=== PATIENT | male | born 1995 | race Caucasian/White ===

== ENCOUNTER 2018-01-15 03:34 | Emergency (ER) | payer SELFPAY ==
[~2018-01-15 03:34] MED LIST: ANTI2TAB PO; BENT20TA PO
[2018-01-15 03:36] VITALS: BP 178/118; PULSE 113; RESP 18; TEMP 98.5; O2SAT 99
[2018-01-15] MEDS ORDERED: SILVER NITR/POTASSIUM NITRATE APPLICATORS TOPICAL ONE (04:00)
[2018-01-15 04:31] VITALS: BP 155/95; PULSE 88; RESP 16; O2SAT 99
[2018-01-15] MEDS ORDERED: AMLO5 PO (04:31)
--- NOTE | 2018-01-15 04:31 | PD ---
HPI Chief Complaint: Nosebleed Time Seen by Provider: 03:42 Travel History International Travel<30 days: No Contact w/Intl Traveler<30days: No Traveled to known affect area: No History of Present Illness HPI The patient is a 22-year-old male who presents to the emergency department for bleeding on the outside of the nose. The patient states there is an area over the lateral aspect of the right nare which has been bleeding for the last 2-3 hours. The patient states he may have scratched the affected area, however, continues to bleed despite applying pressure over the affected area. The patient denies any history of coagulopathy or easy bruising/ difficulty bleeding. He denies taking any current anticoagulants. Symptoms are moderate. The patient does have a history of hypertension, states he has a familiar history of hypertension, however, does not currently take medications for his blood pressure. He denies any current headache, chest pain, shortness breath, nausea, vomiting, or abdominal pain. The patient does admit to drinking a significant amount of alcohol earlier tonight. PFSH Past Medical History Narrative Medical Hypertension Diminished Hearing: No Immunizations Current: Yes Past Surgical History Surgical History: No Previous Surgery Social History Alcohol Use: Yes Tobacco Use: Yes (1PPD) Substance Use: No Allergies-Medications (Allergen,Severity, Reaction): Coded Allergies: No Known Allergies (Unverified Adverse Reaction, Unknown, 01/15/18) Reported Meds & Prescriptions Reported Meds & Active Scripts Active Norvasc (Amlodipine Besylate) 5 Mg Tab 5 Mg PO DAILY Review of Systems Except as stated in HPI: all other systems reviewed are Neg General / Constitutional: No: Fever HENT: Positive: Nosebleed (Bleeding on the outside of the right nare), No: Lightheadedness Cardiovascular: No: Chest Pain or Discomfort Respiratory: No: Shortness of Breath Gastrointestinal: No: Nausea, Vomiting Hematologic/Lymphatic: No: Easy Bruising Physical Exam Narrative GENERAL: Awake, alert, pleasant 22-year-old male who appears his stated age and is in no acute respiratory distress. SKIN: Focused skin assessment warm/dry. Patient has a small bleeding area on the lateral aspect of the right nare. No visible epistaxis. HEAD: Atraumatic. Normocephalic. EYES: Pupils equal and round. No scleral icterus. No injection or drainage. ENT: No nasal bleeding or discharge. Mucous membranes pink and moist. NECK: Trachea midline. No JVD. MUSCULOSKELETAL: No obvious deformities. No clubbing. No cyanosis. No edema. NEUROLOGICAL: Awake and alert. No obvious cranial nerve deficits. Motor grossly within normal limits. Normal speech. PSYCHIATRIC: Appropriate mood and affect; insight and judgment normal. Data Data Last Documented VS Vital Signs Date Time Temp Pulse Resp B/P (MAP) Pulse Ox O2 Delivery O2 Flow Rate FiO2 01/15/18 04:31 88 16 155/95 (115) 99 01/15/18 03:36 98.5 Orders Orders Silver Nitrate Applicators (Silver Nitra (01/15/18 04:00) MDM Medical Decision Making Medical Screen Exam Complete: Yes Emergency Medical Condition: Yes Medical Record Reviewed: Yes Differential Diagnosis Differential diagnosis includes epistaxis, coagulopathy, uncontrolled bleeding, thrombocytopenia, hypertension. Narrative Course Pressure was applied to the outside of the nose. However, the patient continued to have small amount of bleeding from the area, therefore, a several nitrate stick was used the cauterized the bleeding. The patient was monitored for 30 minutes, there is no further bleeding. I did discussion with the patient regarding institution of medications for his hypertension. He does note a long-standing history of hypertension, states he occasionally has some dizziness and head rushes from his elevated blood pressure. After discussion was agreed we will place the patient on Norvasc and he would follow-up with a primary physician. He is advised to apply Neosporin of the affected area where the bleeding was occurring and not to rub the area or pick at the scab. Diagnosis Primary Impression: Bleeding Additional Impression: Hypertension Qualified Codes: I10 - Essential (primary) hypertension Patient Instructions: General Instructions Additional Instructions: Apply Neosporin to the scab on the outside of the right nare. Norvasc as directed. Monitor your blood pressure and keep a log. Follow-up with a primary physician. Return if symptoms worsen or progress. Work excuse for 1 day. Med/Other Pt SpecificInfo: Prescription(s) given Scripts Amlodipine (Norvasc) 5 Mg Tab 5 MG PO DAILY for Blood Pressure Management, #30 TAB 0 Refills Prov: Gurdeep Harper MD 01/15/18 Disposition: 01 DISCHARGE HOME Condition: Stable Gurdeep Harper MD January 15, 2018 04:31
== END 2018-01-15 04:50 | disposition home or self-care (01) ==
LOC: NEPC 03:34
DX: R58 Hemorrhage, not elsewhere classified (principal); I10 Essential (primary) hypertension; F17.200 Nicotine dependence, unspecified, uncomplicated
CPT/HCPCS: 30901